=== PATIENT | female | born 1985 | race Hispanic/Latino ===

== ENCOUNTER → 2024-12-26 | Outpatient (CLI) | payer BC ==
--- NOTE | 2024-12-28 08:56 | HMCIMG ---
Exam Type: MAMMO SCREENING BILATERAL Clinical Information: BASELINE Comparison: None Technique: Mammogram with CAD was performed with CC and MLO projections. CAD shows no worrisome regions. FINDINGS: The breasts are almost entirely fatty. No dominant mass or suspicious microcalcification identified. There is no nipple retraction or skin thickening. IMPRESSION: 1. No mammographic signs of malignancy. 2. Routine follow-up recommended. CATEGORY 1: NEGATIVE Note: A negative x-ray should not delay biopsy if a dominant or clinically suspicious mass is present, since 8-10% of cancers are not identified by mammography.
== END | disposition home or self-care (01) ==
LOC: RAH 14:15
PROVIDERS: ATTEND Nurse Practitioner Family
DX: Z12.31 Encounter for screening mammogram for malignant neoplasm of breast (principal)
CPT/HCPCS: 77067